=== PATIENT | female | born 1980 | race American Indian/Alaskan Native ===

== ENCOUNTER 2018-09-23 09:22 | Outpatient (CLI) | payer BC ==
--- NOTE | 2018-09-23 12:26 | RAD ---
UPPER GI: HISTORY: Epigastric pain x3 weeks. COMPARISON: None. FINDINGS: Supine general dentist radiograph demonstrates a nonspecific bowel gas pattern. The thoracic esophagus has a normal coarse and caliber. No mucosal abnormality. No evidence of an e xtrinsic or intrinsic abnormality. No evidence of reflux during intermittent fluoroscopy. The visualized gastric mucosa and duodenum have an overall normal appearance. No evidence of an ulce rative lesion. No evidence of obstruction. Post procedure supine and upright abdomen radiograph demonstrates contrast opacifying a normal appear ing stomach and proximal small bowel loops. IMPRESSION: Unremarkable upper gastrointestinal study. POS: [facility]
== END 2018-09-23 09:23 | disposition home or self-care (01) ==
LOC: RAD 09:22
PROVIDERS: ATTEND Internal Medicine Gastroenterology
DX: R10.13 Epigastric pain (principal); Z73.3 Stress, not elsewhere classified
CPT/HCPCS: 74247; 87338